=== PATIENT | female | born 1995 | race Caucasian/White ===

== ENCOUNTER 2023-08-19 20:06 | Emergency (ER) | payer MEDICAID, OTHER ==
[~2023-08-19] VITALS: Ht 165.1 cm; Wt 67.0 kg
[2023-08-19 20:10] VITALS: O2SAT 98
[2023-08-19] MEDS ORDERED: ONDANSETRON 4MG ODT PO ONE (20:45)
[2023-08-19 21:29] LABS: CHLORIDE 105 mEq/L (98-107); HEMATOCRIT. 43.5 % (36.0-48.0); HEMOGLOBIN. 14.9 g/dL (12.0-16.0); MEAN CORPUSCULAR HEMOGLOBIN 31.1 pg (28.0-32.0); MEAN CORPUSCULAR HGB CONC 34.3 g/dL (31.0-37.0); MEAN CORPUSCULAR VOLUME 90.6 fL (81.0-99.0); PLATELET 284 x1000/uL (130-400); POTASSIUM 4.2 mEq/L (3.5-5.1); RED BLOOD CELL COUNT 4.81 mill/uL (4.2-5.4); SODIUM 137 mEq/L (136-145); WHITE BLOOD COUNT 17.7 x1000/uL (4.5-11.0)
[2023-08-19 21:30] LABS: CALCIUM 8.8 mg/dL (8.7-10.4); CARBON DIOXIDE 25 mEq/L (21-32)
[2023-08-19 21:34] LABS: DIFFERENTIAL COMMENT 1
[2023-08-19 21:35] LABS: CREATININE 0.9 mg/dL (0.6-1.0); GLUCOSE 117 mg/dL (70-105); UREA NITROGEN BLOOD 15 mg/dL (9-23)
[2023-08-19 21:37] LABS: ALANINE AMINOTRANSFERASE < 7 IU/L (10-49); ALBUMIN 4.8 g/dL (3.2-4.8); ASPARTATE AMINOTRANSFERASE 17 IU/L (<34); BILIRUBIN TOTAL 0.7 mg/dL (0.1-1.0)
[2023-08-19 21:38] LABS: PROTEIN TOTAL 7.7 g/dL (6.0-8.3)
[2023-08-19 21:53] LABS: PLATELET ESTIMATE NORMAL
[2023-08-19] MEDS: ONDANSETRON 4MG ODT PO NR (23:12)
[2023-08-19 23:36] LABS: CLARITY URINE CLEAR (CLEAR); COLOR URINE YELLOW (YELLOW); GLUCOSE URINE NEGATIVE (NEGATIVE); KETONES URINE 3+ (NEGATIVE); LEUKOCYTE ESTERASE URINE TRACE (NEGATIVE); NITRITE URINE NEGATIVE (NEGATIVE); OCCULT BLOOD URINE NEGATIVE (NEGATIVE); PROTEIN URINE TRACE (NEGATIVE); SPECIFIC GRAVITY URINE 1.034 (1.005-1.030); UROBILINOGEN URINE 0.2 E.U./dL (0.2-1.0)
[2023-08-19] MEDS ORDERED: IMOD MT (23:42)
[2023-08-19 23:49] VITALS: BP 119/73; PULSE 92; RESP 18; TEMP 98.4
[2023-08-20 07:49] LABS: SQUAMOUS EPITHELIAL CELL URINE 1+ /lpf (RARE/1+)
[2023-08-20 07:51] LABS: BACTERIA URINE 1+; RBC URINE 0-2 /hpf (0-2); WBC URINE 0-2 /hpf (0-2)
== END 2023-08-19 23:51 | disposition home or self-care (01) ==
LOC: EDSEX 20:06 → ER 20:06
DX: B34.8 Other viral infections of unspecified site (principal)
CPT/HCPCS: 99283; 80053; 81003; 81025; 85025; 36415; Q0162